=== PATIENT | female | born 1970 | race Two or more races ===

== ENCOUNTER → 2020-10-04 | Outpatient (CLI) | payer OTHER ==
[~2020-10-04] MED LIST: HYDR-3363 PO; VITAD400CA FT
[2020-10-04 14:16] VITALS: BP 104/68
--- NOTE | 2020-10-04 15:40 | REP ---
INDICATION: R92.8 ABN MAMMO RT BREAST,STEREOTACTIC BIOPSY. COMPARISON: Comparison mammography August 21 and August 04, 2020.. TECHNIQUE: Stereotactic mammographic guidance. FINDINGS: Stereotactic mammographic guidance is provided to Dr. Lord performed stereotactically guided needle biopsy for microcalcifications with clip placement. IMPRESSION: Stereotactic mammographic guidance. Procedural imaging. <Electronically signed by Migue Gonsalez > 10/04/20 1041
--- NOTE | 2020-10-04 15:40 | REP ---
INDICATION: R92.8 ABN MAMMO RT BREAST,POST STEREOTACTIC BIOPSY. Marker clip placement views. COMPARISON: Comparison mammography 21 August 2020. TECHNIQUE: Craniocaudal and mediolateral views of the right breast are obtained. FINDINGS: Craniocaudal view is obtained rotated laterally along with an MLO view of the right breast. The needle biopsy marker clip is seen in good position in the upper outer quadrant where prior mammography showed microcalcifications. These appear to be fewer in number. IMPRESSION: Marker clip in good position. <Electronically signed by Migue Gonsalez > 10/04/20 1822
--- NOTE | 2020-10-04 15:40 | REP ---
INDICATION: R92.8 ABN MAMMO RT BREAST,STEREOTACTIC BIOPSY. COMPARISON: Comparison mammography August 21, 2020.. TECHNIQUE: Single-view. FINDINGS: Specimen radiography demonstrates numerous scattered suspicious microcalcifications distributed in each of the removed breast biopsy specimens. IMPRESSION: Specimen radiography demonstrates that the specimen contains numerous target microcalcifications. <Electronically signed by Migue Gonsalez > 10/04/20 [id number]
--- NOTE | 2020-10-04 16:37 | REP ---
INDICATION: N63.0 LT BREAST PALPABLE MASS. Left breast lump 12:30 o'clock position, 7.5 cm from the nipple. COMPARISON: Comparison mammography is from August 04, 2020.. TECHNIQUE: Targeted left breast sonography. FINDINGS: In the 1 o'clock position of the left breast, 7 cm from the nipple, there is a 0.5 x 0.4 x 0.6 cm slightly hypoechoic superficial subdermal avascular nodule. Its long axis is parallel to the skin. It has a well-defined back wall and some enhanced through transmission. There is edge refraction shadowing but no other evidence of acoustic shadowing. This lesion does not meet criteria of a simple cyst. IMPRESSION: There is a 0.6 cm hypoechoic nodule in the 1 o'clock position 7 cm from the nipple. This does not meet criteria of a simple cyst. Possible fibroadenoma versus other lesion. Consider histologic sampling. BI-RADS category 4 suspicious finding. <Electronically signed by Migue Gonsalez > 10/04/20 9923
--- NOTE | 2020-10-07 14:25 | ROOPDOC ---
[facility] Report Of Operation Report of Operation DATE OF PROCEDURE: 10/04/20 DIAGNOSIS: Right breast suspicious calcifications PROCEDURE: Right breast stereotactic biopsy with clip placement SURGEON: Salvador Padilla BLOOD LOSS: minimal Lidocaine 1% LOT [id number] Expiration 10/2023 Sodium Bicarbonate 8.4% LOT [id number] Expiration 08/2021 Hydromark clip LOT [id number] Expiration 06/2023 SHAPE : 3 Bx device: Stereotactic Mammotome Revolve Dual Vacuum- assisted Biopsy System 10 G LOT [id number] Expiration 07/2023 REF [id number] Informed consent was obtained in the preop area. The most common risk and possible complications including bleeding, hematoma, bruising, infection, injury to surrounding structures were explained to the patient and patient expressed understanding. Patient was taken to the procedure room and placed prone on the Monitor[facility] Prone Breast Biopsy table with the right breast hanging through the table aperture. Right breast was placed into Cranio-Caudal compression and Heat Treater Apprentice jovanny images were taken. Suspicious calcifications were identified on the jovanny images and target was set. CC approach from the bottom was chosen for this procedure. At this time, since we were able to confirm visibility of the suspicious calcifications and patient tolerated prone positioning allowing to proceed with the biopsy, appropriate time out was done stating patients name, date of , and the procedure to be performed. The right breast in CC compression was prepped in the usual fashion. Plain Lidocaine 1% and 8.4% sodium bicarbonate 10:1 mix was used to anesthetize the skin, the biopsy site and tissues along the anticipated biopsy tract. Small skin incision was made with blade number 11. Mammotome 10 G stereotactic breast biopsy device was inserted through the incision and advanced to the previously set coordinates marking the target lesion. Pre-fire imaging was taken to assure appropriate positioning. At this time, Mammotome 10 G breast biopsy device was fired and five vacuum assisted biopsies were collected. The biopsy samples were investigated with [employer] system and calcifications were observed. Biopsy samples were then placed in the formaldehyde, marked with patients name and right breast biopsy site, and sent to pathology for evaluation. SHAPE 3 Hydromark clip was placed into the Mammotome biopsy device channel and deployed. Post-deployment imaging was done to assure appropriate clip deployment. Clip was noted in the right breast. At this point, paddle CC compression of the right breast was released and manual pressure was held to decrease harmonic effect and to assure hemostasis. No bleeding was noted upon removal of the pressure. Patient was slowly repositioned and placed into sitting position, and then assisted off the table. Post-biopsy mammogram of the right breast was obtained and showed clip in expected position. Postprocedural dressing was placed. Patient tolerated procedure well and was taken to the recovery unit in stable condition. Discharge instructions were discussed with the patient and patient expressed understanding. SALVADOR PADILLA DO Oct 07, 2020 14:25
== END ==
LOC: M WHC 12:49
PROVIDERS: ATTEND Surgery
DX: N60.11 Diffuse cystic mastopathy of right breast (principal); R92.1 Mammographic calcification found on diagnostic imaging of breast

== ENCOUNTER → 2021-04-28 | Outpatient (REF) | payer OTHER | LOC: M WUC 17:40 | PROVIDERS: ATTEND Physician Assistant | DX: R30.0 Dysuria (principal) ==

== ENCOUNTER → 2021-05-31 | Outpatient (CLI) | payer OTHER ==
--- NOTE | 2021-05-31 10:44 | REP ---
INDICATION: ABNORMAL RIGHT MAMMO 6 MONTH F/U BN BX. COMPARISON: Post biopsy images, 10/04/2020. TECHNIQUE: 2D and 3D cc and MLO views of the right breast were obtained. FINDINGS: The Volpara volumetric breast density pattern is C, the breast is heterogeneously dense, which may obscure small masses.. There are 2 biopsy clips noted in the right breast. At the site of the most recent biopsy, there is architectural distortion and trabecular thickening, felt to be more than would be expected following a reportedly benign biopsy. For this reason, six-month follow-up examination is recommended. IMPRESSION: BIRADS/ACR : Category 3: Probably benign. The patient letter being requested is M3. RECOMMENDATION: 2D and 3D follow-up mammographic evaluation of the right breast. <Electronically signed by Rome Cox > 05/31/21 5042
== END ==
LOC: M WHC 09:31
PROVIDERS: ATTEND Surgery
DX: R92.8 Other abnormal and inconclusive findings on diagnostic imaging of breast (principal)
CPT/HCPCS: 77065; G0279

== ENCOUNTER → 2021-12-03 | Outpatient (CLI) | payer OTHER | LOC: M WHC 14:51 | PROVIDERS: ATTEND Nurse Practitioner Women's Health | DX: R92.8 Other abnormal and inconclusive findings on diagnostic imaging of breast (principal) | CPT/HCPCS: 77066; G0279 ==